=== PATIENT | female | born 1965 | race Caucasian/White ===

== ENCOUNTER 2018-02-10 17:38 | Emergency (ER) | payer BC, OTHER ==
[~2018-02-10] VITALS: Wt 77.1 kg
[2018-02-10] MEDS ORDERED: PAXIL20 M1 PO (17:50)
[2018-02-10] MEDS ORDERED: VALIUM2 MG PO (17:50)
== END 2018-02-10 19:11 | disposition home or self-care (01) ==
LOC: ED 17:38
DX: S60.221A Contusion of right hand, initial encounter (principal); Z79.899 Other long term (current) drug therapy; W22.8XXA Striking against or struck by other objects, initial encounter; Y93.89 Activity, other specified; Y92.69 Other specified industrial and construction area as the place of occurrence of the external cause; Y99.9 Unspecified external cause status

== ENCOUNTER 2018-05-02 20:56 | Emergency (ER) | payer BC, OTHER ==
[~2018-05-02] VITALS: Ht 167.6 cm; Wt 80.3 kg
[~2018-05-02 20:56] MED LIST: PAXIL20 M1 PO; VALIUM2 MG PO
== END 2018-05-02 22:21 | disposition home or self-care (01) ==
LOC: ED 20:56
DX: S90.112A Contusion of left great toe without damage to nail, initial encounter (principal); Z79.899 Other long term (current) drug therapy; W20.8XXA Other cause of strike by thrown, projected or falling object, initial encounter; Y93.89 Activity, other specified; Y92.89 Other specified places as the place of occurrence of the external cause; Y99.8 Other external cause status

== ENCOUNTER 2019-03-28 16:57 | Emergency (ER) | payer BC ==
[~2019-03-28] VITALS: Ht 170.1 cm; Wt 78.5 kg
== END 2019-03-28 18:47 ==
LOC: ED 16:57
DX: S99.922A Unspecified injury of left foot, initial encounter (principal); M25.572 Pain in left ankle and joints of left foot; F17.200 Nicotine dependence, unspecified, uncomplicated; Z79.899 Other long term (current) drug therapy; W18.39XA Other fall on same level, initial encounter; W23.0XXA Caught, crushed, jammed, or pinched between moving objects, initial encounter; Y93.89 Activity, other specified; Y92.89 Other specified places as the place of occurrence of the external cause; Y99.8 Other external cause status

== ENCOUNTER 2020-05-20 20:01 | Emergency (ER) | payer OTHER ==
[~2020-05-20] VITALS: Ht 167.6 cm; Wt 77.1 kg
[2020-05-20] MEDS ORDERED: CEPHALEXIN500 M1 PO (20:47)
== END 2020-05-20 21:05 | disposition home or self-care (01) ==
LOC: ED 20:01
DX: S40.262A Insect bite (nonvenomous) of left shoulder, initial encounter (principal); Z88.8 Allergy status to other drugs, medicaments and biological substances; Z79.899 Other long term (current) drug therapy; W57.XXXA Bitten or stung by nonvenomous insect and other nonvenomous arthropods, initial encounter; Y93.89 Activity, other specified; Y92.89 Other specified places as the place of occurrence of the external cause; Y99.8 Other external cause status

== ENCOUNTER 2020-06-03 12:05 | Emergency (ER) | payer OTHER ==
[~2020-06-03] VITALS: Ht 167.6 cm; Wt 77.1 kg
[~2020-06-03 12:05] MED LIST changes: +CEPHALEXIN500 M1 PO
[2020-06-03] MEDS ORDERED: PENICILLIN VK500 MG PO (12:20)
[2020-06-03] MEDS ORDERED: ULTRAM50 MG PO (12:20)
== END 2020-06-03 12:25 | disposition home or self-care (01) ==
LOC: ED 12:05
DX: K08.89 Other specified disorders of teeth and supporting structures (principal); Z88.8 Allergy status to other drugs, medicaments and biological substances; Z79.899 Other long term (current) drug therapy

== ENCOUNTER 2020-07-26 14:59 | Emergency (ER) | payer OTHER ==
[~2020-07-26] VITALS: Ht 170.1 cm; Wt 81.6 kg
[~2020-07-26 14:59] MED LIST changes: +PENICILLIN VK500 MG PO; +ULTRAM50 MG PO
== END 2020-07-26 15:34 | disposition home or self-care (01) ==
LOC: ED 14:59
DX: G89.29 Other chronic pain (principal); M79.641 Pain in right hand; Z88.8 Allergy status to other drugs, medicaments and biological substances; Z79.899 Other long term (current) drug therapy